=== PATIENT | female | born 1960 | race Caucasian/White ===

== ENCOUNTER 2021-03-21 07:41 | Outpatient (CLI) | payer OTHER, SELFPAY ==
--- NOTE | ~2021-03-21 | NM_ITS ---
EXAMINATION: NM hepatobiliary w pharm DATE: 03/21/2021 11:05 INDICATION: Right upper quadrant abdominal pain. Nausea. COMPARISON: None. TECHNIQUE: 5.9 mCi Tc-99m mebrofenin (Choletec) was administered intravenously. Scintigraphic images of the abdomen were obtained for one hour. Then, 1.5 mcg sincalide (Kinevac) IV was administered, an d imaging was continued for 30 minutes. FINDINGS: There is normal clearance of radiotracer from the blood pool. There is homogeneous tracer u ptake by the liver. Activity progresses to the bowel and gallbladder. Gallbladder ejection fraction (GBEF) was 39%. Note that most patients with gallbladder dysfunction have GBEF < 35%, which overlaps with the broad normal range of 10-90%. IMPRESSION: 1. Normal hepatobiliary scintigraphy. Reviewed, dictated and finalized at location A.
== END 2021-03-21 07:42 | disposition home or self-care (01) ==
LOC: CHSIMG 07:46
PROVIDERS: PCP Physician Assistant; Visit Provider Physician Assistant
DX: R10.11 Right upper quadrant pain (principal)
CPT/HCPCS: 78227; A9537; J2805

== ENCOUNTER 2021-03-30 10:16 | Outpatient (CLI) | payer OTHER, SELFPAY ==
--- NOTE | ~2021-03-30 | US_ITS ---
EXAMINATION: US soft tissue head and neck EXAM DATE: 03/30/2021 10:35 INDICATION: Lymphadenopathy of head and neck. TECHNIQUE: Multiple grayscale and Doppler images of the neck, internal jugular chains were obtained ( by a technologist who performed the scan) and subsequently reviewed. There is no prior study for radha rogers. FINDINGS: There is a right internal jugular chain lymph node measuring 1.3 x 1.8 x 0.7 cm with large fatty hilu m. Short axis less than 1 cm is considered within normal size limits. Fatty hilum also indicates it c ould be reactive. On the left side the largest lymph node measures 1.5 x 0.4 x 0.7 cm, also with fatty hilum. There are some smaller regional lymph nodes including one in the left parotid gland. IMPRESSION: Right internal jugular chain lymph node upper limits of normal in size. Probably reactive but clinical follow-up and if these increase in size, a repeat exam or CT neck with contrast recomme nded. Reviewed, dictated and finalized at location B. IMPRESSION: Right internal jugular chain lymph node upper limits of normal in s ize. Probably reactive but clinical follow-up and if these increase in size, a repeat exam or CT neck with contrast recommended.
== END 2021-03-30 10:17 | disposition home or self-care (01) ==
LOC: CHSIMG 10:17
PROVIDERS: PCP Physician Assistant; Visit Provider Physician Assistant
DX: R59.1 Generalized enlarged lymph nodes (principal)
CPT/HCPCS: 76536

== ENCOUNTER 2021-04-13 08:11 | Outpatient (CLI) | payer OTHER, SELFPAY ==
--- NOTE | ~2021-04-13 | CT_ITS ---
EXAMINATION: CT soft tissue neck w con EXAM DATE: 04/13/2021 09:03 INDICATION: Lymphadenopathy, dysphagia. History of breast cancer. Palpable abnormality right mid ante rior neck marked with BB. Left internal lump felt with swallowing. TECHNIQUE: Spiral CT of the neck was performed following intravenous injection of 75 mL Omnipaque 350 . Axial, coronal and sagittal images were reviewed. The dose-length product (DLP) for this examinat ion was 459.84 mGy-cm. The exposure was tailored according to patient size (auto mA exposure control ), and iterative reconstruction (ASIR) was used as additional dose reduction technique. There is no prior study for comparison. FINDINGS: There is a metallic BB along right anterior aspect of the neck with normal-appearing sterno cleidomastoid muscle deep to this. Probable right thyroid lobectomy, is not identified. Along the ri ght cheek there is subcutaneous fluid density nodule probably sebaceous cyst measuring 6 mm. The sub mandibular and parotid glands are symmetric. There is no cervical lymphadenopathy. There are no ma sses identified. The superior mediastinum is unremarkable. The airway is unremarkable. Parapha ryngeal and pre-glottic fat planes are preserved. The opacified vasculature is patent. Right verteb ral artery is dominant. Right internal jugular vein is dominant drainage. The orbits are unremarkabl e. Visualized sinuses and mastoid air cells are well aerated. Mild apical scarring and emphysema. Mild to moderate cervical spondylosis. IMPRESSION: 1. Unremarkable CT neck examination. Reviewed, dictated and finalized at location A.
[2021-04-13 08:34] LABS: Estimated Glomerular Filt Rate 51
== END 2021-04-13 08:12 | disposition home or self-care (01) ==
LOC: CHSIMG 08:12
PROVIDERS: PCP Physician Assistant; Visit Provider Physician Assistant
DX: R59.1 Generalized enlarged lymph nodes (principal)
CPT/HCPCS: 70491; Q9967

== ENCOUNTER 2021-05-10 10:57 | Outpatient (CLI) | payer OTHER, SELFPAY ==
--- NOTE | ~2021-05-10 | MM_ITS ---
EXAMINATION: MM screening arnulfo BI w juani HISTORY: Screening mammogram, history of right breast cancer TECHNIQUE: Craniocaudal and mediolateral oblique 3-D tomosynthesis images were obtained and synthetic 2-D images were generated. CAD analysis was submitted and interpreted. COMPARISON: No prior mammogram is available for comparison at this institution. BREAST PARENCHYMAL COMPOSITION: There are scattered areas of fibroglandular density. FINDINGS: RIGHT BREAST: Lumpectomy changes are present in the right breast. Calcifications likely relate to jackie or lumpectomy. LEFT BREAST: There appears to be an intramammary lymph node of the lower inner breast. IMPRESSION: 1. Right breast calcifications likely related to prior lumpectomy and possible intramammary lymph nod e of the left breast. 2. Comparison with prior mammograms is necessary. BI-RADS Category 0: Incomplete: Needs comparison with prior mammograms. Reviewed, dictated and finalized at location A. IMPRESSION: 1. Right breast calcifications likely related to prior lumpectomy and possible intramammary lymph node of the left breast. 2. Comparison with prior mammograms is necessary. BI-RADS Category 0: Incomplete: Needs comparison with prior mammograms.
== END 2021-05-10 10:58 | disposition home or self-care (01) ==
LOC: CHSIMG 11:00
PROVIDERS: PCP Physician Assistant; Visit Provider Physician Assistant
DX: Z12.31 Encounter for screening mammogram for malignant neoplasm of breast (principal)
CPT/HCPCS: 77063; 77067

== ENCOUNTER 2021-06-08 08:50 | Outpatient (CLI) | payer OTHER, SELFPAY ==
--- NOTE | ~2021-06-08 | MM_ITS ---
EXAMINATION: MM diagnostic arnulfo RT w juani HISTORY: Follow-up developing right breast calcifications TECHNIQUE: Additional 3-D tomosynthesis images of the right breast were performed and synthetic 2-D i mages were generated. CAD analysis was submitted and interpreted. COMPARISON: Comparison to multiple prior studies sequentially, with oldest reviewed study dated 05/10. BREAST PARENCHYMAL COMPOSITION: Breast composed of scattered areas of fibroglandular density. FINDINGS: There are changes of prior lumpectomy for breast cancer in the subareolar location of the r ight breast. There are developing amorphous calcifications at the lumpectomy site, likely benign fat necrosis. No discrete mass identified. IMPRESSION: 1. Probable benign developing right breast calcifications at the prior lumpectomy site. 2. Recommend 6 month follow-up diagnostic right mammogram. BI-RADS category 3, probably benign findings. Reviewed, dictated and finalized at location A. IMPRESSION: 1. Probable benign developing right breast calcifications at the prior lumpecto my site. 2. Recommend 6 month follow-up diagnostic right mammogram. BI-RADS category 3, probably benign findings.
== END 2021-06-08 08:51 | disposition home or self-care (01) ==
LOC: CHSIMG 08:54
PROVIDERS: PCP Physician Assistant; Visit Provider Physician Assistant
DX: R92.8 Other abnormal and inconclusive findings on diagnostic imaging of breast (principal)
CPT/HCPCS: 77061; 77065; G0279

== ENCOUNTER 2021-08-10 08:58 | Outpatient (CLI) | payer OTHER, SELFPAY ==
--- NOTE | ~2021-08-10 | US_ITS ---
EXAMINATION: US right upper quadrant EXAM DATE: 08/10/2021 09:22 INDICATION: Abdominal pain TECHNIQUE: Multiple grayscale and Doppler images of the abdomen right upper quadrant were obtained (b y a technologist who performed the scan) and subsequently reviewed. There is no prior study for mc coley. FINDINGS: The pancreatic head and body are normal in appearance. The pancreatic tail is not visualized. There is echogenic liver parenchyma, hepatic steatosis. There are no focal liver lesions identified. Th ere is no evidence of intrahepatic biliary duct dilation. Portal venous flow was seen in the hepatop edal, normal direction and has normal Doppler waveform. No right-sided hydronephrosis. Common bile duct measures 5 mm, which is normal. The gallbladder wall is normal in thickness, with ex pected amount of distention. No sonographic evidence of pericholecystic fluid. There is no cholelit hiases. Technologist noted tenderness over the otherwise sonographically unremarkable gallbladder. IMPRESSION: 1. Right upper quadrant tenderness. Sonographically normal gallbladder. 2. Hepatic steatosis. Reviewed, dictated and finalized at location B. BING MECHANIC
== END 2021-08-10 08:59 | disposition home or self-care (01) ==
LOC: CHSIMG 09:00
PROVIDERS: PCP Physician Assistant; Visit Provider Nurse Practitioner Psychiatric/Mental Health
DX: R10.11 Right upper quadrant pain (principal)
CPT/HCPCS: 76705

== ENCOUNTER 2021-08-27 09:18 | Outpatient (CLI) | payer OTHER, SELFPAY ==
--- NOTE | ~2021-08-27 | NM_ITS ---
. EXAMINATION: NM hepatobiliary w pharm DATE: 08/27/2021 12:05 INDICATION: Right upper quadrant abdominal pain. COMPARISON: Ultrasound 08/10/2021 TECHNIQUE: 5.9 mCi Tc-99m mebrofenin (Choletec) was administered intravenously. Scintigraphic images of the abdomen were obtained for one hour. Then, 1.5 mcg sincalide (Kinevac) IV was administered, an d imaging was continued for 30 minutes. FINDINGS: There is normal clearance of radiotracer from the blood pool. There is homogeneous tracer u ptake by the liver. Activity progresses to the bowel and gallbladder. Gallbladder ejection fraction (GBEF) was 51%. Note that most patients with gallbladder dysfunction have GBEF < 35%, which overlaps with the broad normal range of 10-90%. IMPRESSION: 1. Normal hepatobiliary scintigraphy. Reviewed, dictated and finalized at location A. 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
[2021-08-27 10:19] LABS: INR 2.5; Prothrombin Time 25.2 Seconds (9.50-12.10)
== END 2021-08-27 09:19 | disposition home or self-care (01) ==
LOC: CHSIMG 09:21
PROVIDERS: PCP Family Medicine; Visit Provider Physician Assistant
DX: R10.11 Right upper quadrant pain (principal); Z79.01 Long term (current) use of anticoagulants
CPT/HCPCS: 36415; 78227; 85610; A9537; J2805

== ENCOUNTER 2021-10-10 15:40 | Emergency (ER) | payer OTHER, SELFPAY ==
--- NOTE | ~2021-10-10 | XR_ITS ---
EXAMINATION: XR chest 2V DATE: 10/10/2021 17:38 INDICATION: Cough. Dyspnea. TECHNIQUE: Frontal and lateral views of the chest were obtained on 3 radiographs. COMPARISON: None. FINDINGS: The lungs are hyperexpanded, consistent with chronic obstructive pulmonary disease. There i s mild scarring at the lung apices. There is mild atelectasis versus scarring in the lower lung zones . No pleural effusion or pneumothorax. The heart size is normal. Surgical clips overlie left chest. T here is mild chronic anterior wedging of a midthoracic vertebral body. IMPRESSION: 1. Hyperexpanded lungs, consistent with chronic obstructive pulmonary disease. 2. Mild scarring at the lung apices and mild atelectasis versus scarring in the lower lung zones. Reviewed, dictated and finalized at location A. IT REPORTING CLERK
[2021-10-10 16:08] VITALS: BP 126/67; PULSE 109; RESP 22; TEMP 36.6; O2SAT 92
--- NOTE | 2021-10-10 16:59 | ED.URI ---
HPI - URI/Sore Throat General Chief Complaint: Upper Respiratory Infection Stated Complaint: trouble breathing,cough,nausea Source: patient and RN notes reviewed Mode of arrival: ambulatory Limitations: no limitations History of Present Illness HPI Narrative: patient states she has been ill for approximately 3 weeks. The 1st week her doctor diagnosed her with a stomach virus. Then the 2nd week he said that she had an upper respiratory infection and she was started on a Z-Jean Paul. This week he said come to the emergency room. She has been having cough with some green phlegm and feeling short of breath with coughing. MD elicited complaint: fever, cough and nasal congestion Onset (ago): week(s) (3) Consistency: intermittent Severity: moderate Description of mucous: green Able to tolerate fluids by mouth: Yes Exacerbating factors: other (coughing) Relieving factors: nothing Related Data Home Medications Medication Instructions Recorded Confirmed anastrozole 1 mg PO DAILY 10/10/21 10/10/21 atorvastatin 80 mg PO DAILY 10/10/21 10/10/21 buspirone 10 mg PO DAILY 10/10/21 10/10/21 citalopram 40 mg PO DAILY 10/10/21 10/10/21 levothyroxine 25 mcg PO DAILY 10/10/21 10/10/21 omeprazole 40 mg PO DAILY 10/10/21 10/10/21 warfarin 1 mg PO DAILY 10/10/21 10/10/21 warfarin 4 mg PO DAILY 10/10/21 10/10/21 Allergies Allergy/AdvReac Type Severity Reaction Status Date / Time naproxen Allergy Mild SKIN Verified 10/10/21 16:16 ITCHES AND GRACIA adhesive tape Allergy Unknown Verified 10/10/21 16:16 Review of Systems Review of Systems: All systems reviewed & are unremarkable except as noted in HPI and below Constitutional: Constitutional: Reports chills, Reports fever(s) (102) and Reports weakness (generalized) ENT: Denies nasal congestion and Denies sore throat Cardiovascular: Cardiovascular: Denies chest pain Respiratory: Respiratory: Reports as per HPI Gastrointestinal: Gastrointestinal: Denies diarrhea, Reports nausea and Denies vomiting Neurologic: Reports headache(s) [facility] Past Medical History Medical History (Updated 10/10/21 @ 18:28 by Christopher Harrison MD) Breast cancer Peripheral artery disease Thyroid adenoma Surgical History Surgical History (Updated 01/19/22 @ 17:22 by Christopher Harrison MD) H/O thyroidectomy History of femoropopliteal bypass bilateral Social History Social History (Updated 10/10/21 @ 17:22 by Christopher Harrison MD) Smoking packs per day: 1 Smoking cigarettes per day: 20.0 Smoking status: Current every day smoker Tobacco type: cigarettes Exam Const: General: no acute distress, alert and ill appearing acutely Nutritional Appearance: well nourished Orientation/consciousness: patient oriented x3 HENMT: Head: normal to inspection Ears: external ears normal and TM's normal bilaterally Face and sinus: normal facial exam Mouth: Yes Normal oral and palatal mucosa present, Yes lip normal and Yes moist mucous membranes Throat: posterior oropharynx normal and uvula midline Eyes: Conjunctivae: conjunctivae normal Pupils: Equal, round and reactive pupils present EOM: EOMs intact bilaterally Neck: Neck: normal visual inspection Resp: Effort & Inspection: normal respiratory effort Auscultation: rhonchi throughout ( posteriorly) Cardio: Rate: regular rate Rhythm: regular rhythm GI: GI Palp: Yes Soft to palpation and No Tenderness to palpation present (GI) Auscultation: normal bowel sounds Back/Spine/Pelvis: Cervical Spine: cervical ROM normal Thoracic/Lumbar Spine: thoraco-lumbar ROM normal Course Vital Signs Vital signs: Vital Signs Temperature 36.6 C 10/10/21 16:08 Pulse Rate 109 H 10/10/21 16:08 Respiratory Rate 22 H 10/10/21 16:08 Blood Pressure 126/67 10/10/21 16:08 Pulse Oximetry 92 10/10/21 16:08 Temperature 36.6 C 10/10/21 16:08 Pulse Rate 91 10/10/21 18:47 Respiratory Rate 18 10/10/21 18:47 Blood Pressure 121/91 H 10/10/21
[2021-10-10 17:24] LABS: Basophils Absolute Auto 0.03 K/mm3 (0.00-0.10); Basophils Percent Auto 0.4 % (0.0-1.0); Eosinophils Absolute Auto 0.05 K/mm3 (0.02-0.50); Eosinophils Percent Auto 0.7 % (1.0-6.0); Hematocrit 41.6 % (35.0-49.0); Hemoglobin 13.4 g/dL (12.0-15.0); Immature Granulocyte Absolute 0.03 K/mm3 (0.00-0.00); Immature Granulocyte Percent A 0.4 % (0.0-0.0); Lymphocytes Absolute Auto 1.28 K/mm3 (1.10-4.50); Lymphocytes Percent Auto 17.6 % (18.0-42.0); Mean Corpuscular HGB Conc 32.2 g/dL (32.0-36.0); Mean Platelet Volume 9.8 fl (9.2-11.8); Monocytes Absolute Auto 0.52 K/mm3 (0.10-0.90); Monocytes Percent Auto 7.1 % (2.0-11.0); Neutrophils Absolute Auto 5.4 K/mm3 (1.7-7.2); Neutrophils Percent Auto 73.8 % (50.0-70.0); Platelet Count Result 189 K/mm3 (150-420); Red Blood Count 4.78 M/mm3 (4.20-5.40); Red Cell Distribution Width 14.1 % (11.6-14.4); White Blood Count 7.3 K/mm3 (4.8-10.8)
[2021-10-10 17:47] LABS: Alanine Aminotransferase 39 U/L (14-59); Albumin Level 2.9 g/dL (3.4-5.0); Alkaline Phosphatase 140 U/L (46-116); Anion Gap 10 mmol/L (8-16); Aspartate Amino Transferase 33 U/L (15-37); Bilirubin,Total 0.4 mg/dL (0.00-1.00); Blood Urea Nitrogen 11 mg/dL (7-18); Calcium 8.7 mg/dL (8.5-10.1); Carbon Dioxide 27 mmol/L (21-32); Chloride 95 mmol/L (98-108); Estimated CRCL calculation 45 ml/min; Estimated Glomerular Filt Rate 46; Glucose 87 mg/dL (70-99); Magnesium 2.1 mg/dL (1.8-2.4); NT Pro B Type Natriuretic Pept 328 pg/mL (0-125); Osmolality Calculated 272 mOsm/kg (285-295); Sodium 132 mmol/L (136-145); Total Protein 7.8 g/dL (6.4-8.2)
[2021-10-10 18:00] LABS: CRP 6.8 mg/dL (0.0-0.9)
[2021-10-10] MEDS: methylPREDNISolone SOD SUCC 125 MG VIAL IM (18:41)
[2021-10-10 18:47] VITALS: BP 121/91; PULSE 91; RESP 18; O2SAT 92
== END 2021-10-10 18:48 | disposition home or self-care (01) ==
PROVIDERS: Emergency Provider Emergency Medicine; PCP Family Medicine
DX: J44.1 Chronic obstructive pulmonary disease with (acute) exacerbation (principal)
CPT/HCPCS: 36415; 71046; 80053; 83735; 83880; 85025; 86140; 96372; 99283; J2930

== ENCOUNTER 2021-10-12 14:28 | Emergency (ER) | payer OTHER, SELFPAY ==
[2021-10-12 14:32] VITALS: BP 132/72; PULSE 86; RESP 18; TEMP 36.6; O2SAT 95
--- NOTE | 2021-10-12 14:49 | ED.ALLEREA ---
HPI - Allergic Reaction General Chief complaint: Allergic Reaction Stated complaint: possible allergic reaction Time Seen by Provider: 10/12/21 14:49 Source: patient Mode of arrival: ambulatory Limitations: no limitations History of Present Illness HPI narrative: 61-year-old woman comes in today complaining of burning, swelling, and redness of her face and neck that started in the last 24 hours. Patient states that she was here 2 days ago with some shortness of breath and cough and wheezing and she was prescribed steroids, DuoNebs, and doxycycline. She denies itching, throat swelling, tongue swelling,, nausea, vomiting, chest pain, diarrhea, and abdominal pain. She denies any recent sun exposure. MD complaint: facial swelling Onset (ago): day(s) (1) Exposure: medication Known history of allergy to: Naproxen Symptoms: rash and facial swelling Severity: moderate Treatment prior to arrival: none and steroids Previous Allergic Reaction History: angioedema Related Data Home Medications Medication Instructions Recorded Confirmed anastrozole 1 mg PO DAILY 10/10/21 10/12/21 atorvastatin 80 mg PO DAILY 10/10/21 10/12/21 buspirone 10 mg PO DAILY 10/10/21 10/12/21 citalopram 40 mg PO DAILY 10/10/21 10/12/21 levothyroxine 25 mcg PO DAILY 10/10/21 10/12/21 omeprazole 40 mg PO DAILY 10/10/21 10/12/21 warfarin 1 mg PO DAILY 10/10/21 10/12/21 warfarin 4 mg PO DAILY 10/10/21 10/12/21 Allergies Allergy/AdvReac Type Severity Reaction Status Date / Time naproxen Allergy Mild SKIN Verified 10/12/21 14:51 ITCHES AND GRACIA adhesive tape Allergy Unknown Verified 10/12/21 14:51 Review of Systems Review of Systems: All systems reviewed & are unremarkable except as noted in HPI and below Constitutional: Constitutional: Denies chills and Denies fever(s) Eyes: Eyes: Denies change in vision and Denies photophobia ENT: Reports nasal congestion and Denies sore throat Cardiovascular: Cardiovascular: Denies chest pain and Denies radiating jaw, neck or arm pain Respiratory: Respiratory: Reports chest congestion, Reports cough, Reports dyspnea and Reports wheezing Gastrointestinal: Gastrointestinal: Denies abdominal pain, Denies diarrhea, Denies nausea and Denies vomiting Musculoskeletal: Musculoskeletal: Denies arthralgias and Denies joint swelling Integumentary/Breasts: Skin/Breast: Denies pruritus and Reports erythema Neurologic: Denies vertigo, Denies dizziness and Denies syncope Allergic/Immunologic: Allergic/Immunologic: Denies lip swelling, Denies throat swelling and Denies tongue swelling [facility] Past Medical History Medical History Breast cancer Peripheral artery disease Thyroid adenoma Surgical History Surgical History H/O thyroidectomy History of femoropopliteal bypass bilateral Social History Social History Smoking packs per day: 1 Smoking cigarettes per day: 20.0 Smoking status: Current every day smoker Tobacco type: cigarettes Exam Const: General: healthy appearing, no acute distress and alert Orientation/consciousness: patient oriented x3 Limitations: no limitations HENMT: Ears: TM's normal bilaterally and EAC's normal Face and sinus: normal facial exam Mouth: Yes moist mucous membranes Throat: posterior oropharynx normal and uvula midline Other: mild edema and erythema of the cheeks, nose, and neck Eyes: Conjunctivae: conjunctivae normal Pupils: Equal, round and reactive pupils present EOM: EOMs intact bilaterally Resp: Effort & Inspection: normal respiratory effort, not labored and no retractions Auscultation: no rales, no rhonchi, wheezes expiratory wheezes and scattered wheezes and diminished lung sounds ( Mildly throughout) Cardio: Rate: regular rate Rhythm: regular rhythm Heart sounds: no murmurs Skin: Gene
== END 2021-10-12 15:23 | disposition home or self-care (01) ==
PROVIDERS: Emergency Provider Emergency Medicine; PCP Physician Assistant
DX: T50.905A Adverse effect of unspecified drugs, medicaments and biological substances, initial encounter (principal)
CPT/HCPCS: 99283

== ENCOUNTER 2022-07-11 09:50 | Outpatient (CLI) | payer OTHER, SELFPAY ==
--- NOTE | ~2022-07-11 | US_ITS ---
EXAMINATION: US carotid duplex BI DATE: 07/11/2022 10:58 INDICATION: Carotid stenosis TECHNIQUE: Grayscale, color Doppler, and pulsed Doppler images of the cervical carotid arteries were obtained. The degree of vessel stenosis is placed in one of the following categories: normal, <50%, 5 0-69%, >=70% but less than near-occlusion, near-occlusion, or total occlusion. Note that percent sten osis relative to normal distal artery lumen diameter is indirectly measured from velocity measurement s as described by Feroz, et al. Radiology 2003; [id number]. Notes: Normal: Peak systolic velocity <125 centimeters/sec and no plaque <50%. Peak systolic velocity <125 ( EDV <40; ICA/CCA PSV ratio <2.0; used these factors only a tandem lesions or low cardiac output or co ntralateral disease) 50-69 %: PSV 125-230 (EDV 40-100; ratio 2-4) >= 70% but less than near occlusion: PSV greater than 230 (EDV > 100; ratio> 4.0) Near Occlusion: PSV that is variable; markedly narrowed lumen Occlusion: Absent flow on color/spectral Doppler and no lumen on cooley scale. COMPARISON: None. FINDINGS: RIGHT: The right common carotid artery (CCA) peak systolic velocity (PSV) is 93 cm/s. The right internal car otid artery (ICA) PSV is 75 cm/s. The right ICA end-diastolic velocity (EDV) is 22 cm/s. The right IC A/CCA PSV ratio is 0.8. The external carotid artery (ECA) PSV is 108 cm/s. There is antegrade flow in the right vertebral artery. LEFT: The left CCA PSV is 92 cm/s. The left ICA PSV is 104 cm/s. The left ICA EDV is 23 cm/s. The left ICA/ CCA PSV ratio is 1.1. The ECA PSV is 215 cm/s. There is antegrade flow in the left vertebral artery. IMPRESSION: 1. Less than 50% stenosis in the right internal carotid artery by sonographic criteria. 2. Less than 50% stenosis in the left internal carotid artery by sonographic criteria. Reviewed, dictated and finalized at location A. IMPRESSION: 1. Less than 50% stenosis in the right internal carotid artery by sonographic iván chapman. 2. Less than 50% stenosis in the left internal carotid artery by sonographic manda zamora.
== END 2022-07-11 09:51 | disposition home or self-care (01) ==
LOC: CHSIMG 09:51
PROVIDERS: PCP Physician Assistant; Visit Provider Physician Assistant
DX: I65.29 Occlusion and stenosis of unspecified carotid artery (principal)
CPT/HCPCS: 93880

== ENCOUNTER 2022-07-21 15:42 | Emergency (ER) | payer OTHER, SELFPAY ==
--- NOTE | ~2022-07-21 | XR_ITS ---
EXAM: XR knee LT min 4V DATE: 07/21/2022 16:00 HISTORY: LAT LEFT KNEE PAIN, STEPPED IN HOLE 5 DAYS AGO. . COMPARISON: None available. FINDINGS: Normal mineralization. No fracture or dislocation. No lytic or blastic lesion. Mild left k nee osteoarthritis. Quadriceps enthesopathy. No erosion or periosteal change. Atherosclerotic calcifi cations. IMPRESSION: No acute osseous finding in the left knee. Reviewed, dictated and finalized at location K.
[2022-07-21 15:51] VITALS: BP 129/80; PULSE 93; RESP 18; TEMP 36.1; O2SAT 98
--- NOTE | 2022-07-21 16:06 | ED.LOWEXIN ---
HPI - Extremity Injury (Lower) General Chief Complaint: Extremity Injury, Lower Stated Complaint: outer L leg injury;stepped in hole Time Seen by Provider: 07/21/22 15:48 Source: patient Mode of arrival: ambulatory Limitations: no limitations History of Present Illness HPI Narrative: PATIENT IS A 62-YEAR-OLD WHITE FEMALE STATES SHE STEPPED IN A HOLE ABOUT THE SIZE OF HER FOOT AND HER SISTER'S YD AND TWISTED HER LEFT KNEE WITH EXTERNAL IN FOR EVERSION AND NOW COMPLAINS OF LATERAL KNEE PAIN SINCE SHE HAS BEEN USING TYLENOL FOR THE PAIN WITHOUT MUCH HELP. HE IS ON COUMADIN BLOOD THINNERS FOR PERIPHERAL ARTERY DISEASE AND HAS ALLERGIES TO NAPROSYN. DENIES ANY PREVIOUS INJURY OR OTHER INJURIES. SHE SAID SHE FELT A POP WHEN IT HAPPENED. DENIES ANY NUMBNESS OR TINGLING. DENIES ANY BACK OR HIP PAIN OR ANKLE PAIN DENIES LOSS OF CONSCIOUSNESS. Related Data Home Medications Medication Instructions Recorded Confirmed anastrozole 1 mg tablet 1 mg PO DAILY 10/10/21 07/21/22 atorvastatin 80 mg tablet 80 mg PO DAILY 10/10/21 07/21/22 buspirone 10 mg tablet 10 mg PO DAILY 10/10/21 07/21/22 citalopram 40 mg tablet 40 mg PO DAILY 10/10/21 07/21/22 levothyroxine 25 mcg tablet 25 mcg PO DAILY 10/10/21 07/21/22 omeprazole 40 mg capsule,delayed 40 mg PO DAILY 10/10/21 07/21/22 release warfarin 1 mg tablet 1 mg PO DAILY 10/10/21 07/21/22 warfarin 4 mg tablet 4 mg PO DAILY 10/10/21 07/21/22 Allergies Allergy/AdvReac Type Severity Reaction Status Date / Time naproxen Allergy Mild SKIN Verified 07/21/22 15:56 ITCHES AND GRACIA adhesive tape Allergy Unknown Verified 07/21/22 15:56 Review of Systems Review of Systems: All systems reviewed & are unremarkable except as noted in HPI and below Constitutional: Constitutional: Reports no additional constitutional complaints Eyes: Eyes: Reports no additional eye complaints ENT: Reports system reviewed and no additional complaints, except as documented Cardiovascular: Cardiovascular: Reports no additional cardiovascular complaints Respiratory: Respiratory: Reports no additional respiratory complaints Gastrointestinal: Gastrointestinal: Reports no additional gastrointestinal complaints Genitourinary: Genitourinary: Reports no additional female genitourinary complaints Musculoskeletal: Musculoskeletal: Reports no additional musculoskeletal complaints, Reports as per HPI and Reports arthralgias Integumentary/Breasts: Comments: HAD A MASTECTOMY AND CANNOT USE CRUTCHES. Neurologic: Reports system reviewed and no additional complaints, except as documented, Reports as per HPI, Denies confusion, Denies dizziness, Denies syncope, Denies headache(s), Denies focal weakness, Denies numbness and Denies weakness PMFSH Past Medical History Medical History Breast cancer Peripheral artery disease Thyroid adenoma Surgical History Surgical History H/O thyroidectomy History of femoropopliteal bypass bilateral Social History Social History Smoking packs per day: 1 Smoking cigarettes per day: 20.0 Smoking status: Current every day smoker Tobacco type: cigarettes Exam Const: General: healthy appearing Nutritional Appearance: well nourished Orientation/consciousness: patient oriented x3 Limitations: no limitations Other: LEFT KNEE NO SWELLING MILD DIFFUSE TENDERNESS ESPECIALLY LATERALLY. FULL RANGE OF MOTION NEGATIVE JOSEPHINE'S TEST, NEGATIVE ANTERIOR AND POSTERIOR DRAWER TESTING. STABLE TO VARUS AND VALGUS STRESSES. NO CONTUSIONS. LEFT HIP AND ANKLE FULL RANGE OF MOTION NONTENDER. NEUROVASCULAR INTACT TO THE LEFT LOWER EXTREMITY. GAIT NORMAL. Course Course Emergency Course: PATIENT WAS GIVEN A KNEE IMMOBILIZER. EVALUATION AND PLAN WAS DISCUSSED ALL QUESTIONS WERE ASKED AND ANSWERED PATIENT WOULD
--- NOTE | 2022-07-21 16:19 | PC.NURSE ---
patient refused norco, states she is driving.
[2022-07-21 16:48] VITALS: BP 122/73; PULSE 105; RESP 16; TEMP 36.6; O2SAT 95
--- NOTE | 2022-07-21 16:56 | PC.NURSE ---
patient provided written script for walker and printed prescription for norco upon dishcarge.
== END 2022-07-21 16:55 | disposition home or self-care (01) ==
PROVIDERS: Emergency Provider Emergency Medicine; PCP Physician Assistant
DX: S83.92XA Sprain of unspecified site of left knee, initial encounter (principal); Z85.3 Personal history of malignant neoplasm of breast; I73.9 Peripheral vascular disease, unspecified; F17.200 Nicotine dependence, unspecified, uncomplicated
CPT/HCPCS: 73564; 99283; L1830

== ENCOUNTER 2022-08-21 14:40 | Outpatient (CLI) | payer OTHER, SELFPAY ==
--- NOTE | ~2022-08-21 | US_ITS ---
EXAMINATION: US arterial ankle brachial ind DATE: 08/21/2022 15:26 INDICATION: Peripheral arterial disease. Symptoms and signs involving the circulatory system. TECHNIQUE: Segmental pressures and plethysmographic and Doppler waveforms of the brachial and lower e xtremity arteries were obtained. COMPARISON: None. FINDINGS: Right brachial artery pressure was not measured. Left brachial artery pressures was 161 mm Hg. The right ankle-brachial index (KARINA) is 0.63 (normal >= 0.9-1.0). The right great toe-brachial index (TBI) is 0.50 (normal >= 0.65). Arterial Doppler waveforms are biphasic in common femoral artery and monophasic from superficial femoral artery to the ankle. The left KARINA is 0.63. The left TBI was not measured. Arterial Doppler waveforms are monophasic from c ommon femoral artery to the ankle. IMPRESSION: 1. Moderately decreased ABIs, consistent with arterial occlusive disease. Reviewed, dictated and finalized at location A. FLAT INSPECTOR
== END 2022-08-21 14:41 | disposition home or self-care (01) ==
LOC: CHSIMG 14:41
PROVIDERS: PCP Physician Assistant; Visit Provider Physician Assistant
DX: R09.89 Other specified symptoms and signs involving the circulatory and respiratory systems (principal)
CPT/HCPCS: 93922

== ENCOUNTER 2022-09-18 07:48 | Outpatient (CLI) | payer OTHER, SELFPAY ==
--- NOTE | ~2022-09-18 | CT_ITS ---
EXAMINATION: CTA LE LT DATE: 09/18/2022 09:22 INDICATION: Left lower leg pain TECHNIQUE: Computed tomographic angiography (CTA) of the abdominal, pelvis, and both lower extremitie s was performed with 150 mL Omnipaque 350 intravenous contrast. Automated exposure control and iterat corinna reconstruction technique were employed. The dose-length product was 1081.55 mGy-cm. COMPARISON: None. FINDINGS: Incompletely visualized aortobiiliac endoluminal stent graft with thrombosis of both the endoluminal stent in the surrounding pneumonitis the distal aorta and common iliac arteries. Contrast opacificati on of a widely patent left-sided likely axillary left femoral bypass graft and visualized left side o f a likely femoral femoral bypass graft. There is retrograde contrast opacification of the bilateral external and internal iliac arteries. There is a small amount of nonhemodynamically significant atherosclerotic plaque in the left common f emoral artery at its anastomosis with the bypass graft as well as medially distal to the graft in the proximal most left superficial femoral artery. Additional atherosclerotic plaque at the [id number] ee left popliteal artery with up to 40-50% stenosis from small amount of additional atherosclerotic p laque with 30% stenosis at the mid left popliteal artery and distal left popliteal artery at its bifu rcation. No appreciable atherosclerotic disease along the more distal arteries in the left calf with three-vessel runoff to the ankle. Bone alignment is normal. No fracture. Mild to moderate osteoarthritis at the left hip. Joint space a t the left knee appear normal but this could be underestimated on nonweightbearing imaging. There is subarticular cystic change along the medial and posterior margins of the medial tibial plateau sugges ting regions of overlying high-grade chondromalacia. No left hip, knee or ankle joint effusions. Blad vaughn, atrophic and anteverted uterus, left ovary, visualized caudal tip of the left kidney and visuali zed portions of the bowels are all normal. No free fluid in the pelvis. No pathologically enlarged le ft pelvic or inguinal lymphadenopathy. No abnormal masses or fluid collections identified. IMPRESSION: 1. Thrombosed aortobiiliac endoluminal stent graft with supply to the pelvic vessels and left lower limb supplied via a patent left-sided likely axillary to femoral and femoral to femoral bypass grafts . 2. Mild scattered atherosclerotic disease along the left femoral and popliteal arteries with maximal 40-50% stenosis at the proximal left popliteal artery and with three-vessel runoff to the ankle. 3. Mild to moderate osteoarthritis at the left hip and at least mild osteoarthritis in the medial com partment of the left knee with subarticular cystic change at the medial tibial plateau suggesting ove rlying high-grade chondromalacia. Reviewed, dictated and finalized at location A. CAL ADMINISTRATIVE ASSISTANT IMPRESSION: 1. Thrombosed aortobiiliac endoluminal stent graft with supply to the pelvic v essels and left lower limb supplied via a patent left-sided likely axillary to femoral and femoral to femoral bypass grafts. 2. Mild scattered atherosclerotic disease along the left femoral and popliteal arteries with maximal 40-50% stenosis at the proximal left popliteal artery and with three-vessel runoff to the ankle. 3. Mild to moderate osteoarthritis at the left hip and at least mild osteoarthr itis in the medial compartment of the left knee with subarticular cystic change at the medial tibial plateau suggesting overlying high-grade chondromalacia.
[2022-09-18 08:31] LABS: Estimated Glomerular Filt Rate 47
== END 2022-09-18 07:49 | disposition home or self-care (01) ==
LOC: CHSIMG 07:50
PROVIDERS: PCP Physician Assistant; Visit Provider Physician Assistant
DX: M79.662 Pain in left lower leg (principal); Z95.828 Presence of other vascular implants and grafts; I73.9 Peripheral vascular disease, unspecified; M16.12 Unilateral primary osteoarthritis, left hip; M17.12 Unilateral primary osteoarthritis, left knee; M94.262 Chondromalacia, left knee
CPT/HCPCS: 73706; Q9967

== ENCOUNTER 2022-10-09 14:21 | Outpatient (CLI) | payer OTHER, SELFPAY ==
--- NOTE | ~2022-10-09 | XR_ITS ---
EXAMINATION: XR lumbar spine 2-3V DATE: 10/09/2022 14:39 INDICATION: Low back pain. Left-sided sciatica. TECHNIQUE: 3 views of lumbar spine were obtained. COMPARISON: None. FINDINGS: There is 3 degrees dextrocurvature of lumbar spine. There is 3 mm retrolisthesis of L5 on S 1. Vertebral body heights are normal. There is mildly decreased disc height at L4-L5 and severely dec reased disc height at L5-S1. There is multilevel mild to moderate facet joint osteoarthritis. There a re stents in the common iliac arteries. IMPRESSION: 1. Severe lower lumbar spondylosis. Reviewed, dictated and finalized at location A. UET CAPTAIN
== END 2022-10-09 14:22 | disposition home or self-care (01) ==
LOC: CHSIMG 14:23
PROVIDERS: PCP Physician Assistant; Visit Provider Registered Nurse
DX: M54.42 Lumbago with sciatica, left side (principal); M43.06 Spondylolysis, lumbar region
CPT/HCPCS: 72100

== ENCOUNTER 2022-11-01 09:58 | Outpatient (CLI) | payer OTHER, SELFPAY ==
--- NOTE | ~2022-11-01 | CT_ITS ---
EXAMINATION: CT lung screening DATE: 11/01/2022 10:14 INDICATION: Personal history of nicotine dependence, current smoker with 53 pack year history TECHNIQUE: Computed tomography (CT) of the chest was performed without intravenous contrast. The dose -length product (DLP) was 87.35 mGy-cm. Automated exposure control and iterative reconstruction techn ique were employed. COMPARISON: None FINDINGS: There is mild emphysema. There is a 1.5 cm nonsolid nodule of the right upper lobe. There a re multiple smaller nonsolid nodules scattered throughout the left lung. There is a 3 mm subsegmental endobronchial nodule in the right lower lobe on image 95. Nodules of the right lower lobe measure up to 2 mm. No pleural effusion or pneumothorax. There is atelectasis or scarring along the minor fissu re. No pathologically enlarged thoracic lymph nodes are identified. The heart size is normal. Calcifi ed coronary artery atherosclerosis is noted. There is a partially imaged axillary bypass graft on the left. There is moderate thoracic spondylosis. IMPRESSION: 1. Lung-RADS category 0: Incomplete. Follow-up low-dose CT in one to three months is recommended. Reviewed, dictated and finalized at location B. H HAND IMPRESSION: 1. Lung-RADS category 0: Incomplete. Follow-up low-dose CT in one to three james hs is recommended.
== END 2022-11-01 09:59 | disposition home or self-care (01) ==
LOC: CHSIMG 09:59
PROVIDERS: PCP Physician Assistant; Visit Provider Registered Nurse
DX: Z12.2 Encounter for screening for malignant neoplasm of respiratory organs (principal); Z87.891 Personal history of nicotine dependence; R91.8 Other nonspecific abnormal finding of lung field
CPT/HCPCS: 71271

== ENCOUNTER 2022-11-28 14:15 | Outpatient (CLI) | payer OTHER, SELFPAY ==
--- NOTE | ~2022-11-28 | CT_ITS ---
EXAMINATION: CT lumbar spine wo con DATE: 11/28/2022 14:50 INDICATION: Low back pain. TECHNIQUE: Computed tomography (CT) of the lumbar spine was performed without intravenous contrast. A utomated exposure control and iterative reconstruction technique were employed. The dose-length produ ct was 651.44 mGy-cm. COMPARISON: CTA 09/18/2022 FINDINGS: There are stents in the abdominal aorta and common iliac arteries. There is 5 degrees levoc urvature of lumbar spine. There is 4 mm retrolisthesis of L5 on S1. Vertebral body heights are normal . There is mildly decreased disc height at L4-L5 and severely decreased disc height at L5-S1. There i s mild atrophy of left kidney. The following disc levels are specifically discussed: L1-L2: The disc does not extend beyond the endplate margin. There is mild bilateral facet joint osteo arthritis. There is no neural foraminal stenosis. There is no central canal stenosis. L2-L3: The disc is bulging. There is mild bilateral facet joint osteoarthritis. There is mild bilater al neural foraminal stenosis. There is mild central canal stenosis. L3-L4: The disc is bulging. There is moderate right and severe left facet joint osteoarthritis. There is mild bilateral neural foraminal stenosis. There is mild central canal stenosis. L4-L5: The disc is bulging with superimposed right central extrusion. There is severe bilateral facet joint osteoarthritis. There is mild bilateral neural foraminal stenosis. There is mild central canal stenosis. There is moderate stenosis of right lateral recess. L5-S1: The disc is bulging with superimposed left subarticular zone extrusion with mass effect on lef t S1 nerve root in left lateral recess. There is severe bilateral facet joint osteoarthritis. There i s moderate right and mild left neural foraminal stenosis. There is mild central canal stenosis. There is moderate stenosis of left lateral recess. IMPRESSION: 1. Severe lower lumbar spondylosis. Reviewed, dictated and finalized at location A. OL PRINCIPAL
--- NOTE | ~2022-11-28 | CT_ITS ---
CT Scan of the Chest without Contrast: Clinical Indication: Pulmonary nodule, wheezing, cough Technique: Contiguous sections were acquired throughout the chest without intravenous contrast. Dose reduction technique was used on this scan by utilizing automated exposure control and iterative recon struction technique. The dose-length product (DLP) was 185.56 mGy-cm. COMPARISON: 11/01/2022 Findings: There is no evidence of any significant mediastinal, hilar or axillary lymphadenopathy. Coronary ross ry calcium cages are present. There are atherosclerotic calcifications of the aorta. There is no evidence of pleural or pericardial effusion. Chronic scarring or atelectasis at the anteromedial right upper lobe is stable from prior exam. Minim al right apical emphysematous change is stable from prior exam. Questionable minimal groundglass opac ity in the upper lobes, similar to prior exam. Images through the upper abdomen reveal no abnormalities. Impression: Suspected minimal amorphous patchy groundglass opacities in the upper lobes. Correlate for atypical i nfection, bronchiolitis, hypersensitivity pneumonitis. Stable chronic scarring or atelectasis right upper lobe. No suspicious pulmonary nodule for malignancy. Reviewed, dictated and finalized at [facility]. TESTER Impression: Suspected minimal amorphous patchy groundglass opacities in the upper lobes. Co rrelate for atypical infection, bronchiolitis, hypersensitivity pneumonitis. Stable chronic scarring or atelectasis right upper lobe. No suspicious pulmonary nodule for malignancy.
== END 2022-11-28 14:16 | disposition home or self-care (01) ==
LOC: CHSIMG 14:17
PROVIDERS: PCP Physician Assistant; Visit Provider Family Medicine
DX: R91.1 Solitary pulmonary nodule (principal); M54.50 Low back pain, unspecified; R91.8 Other nonspecific abnormal finding of lung field; M43.06 Spondylolysis, lumbar region
CPT/HCPCS: 71250; 72131

== ENCOUNTER 2022-12-07 15:05 | Emergency (ER) | payer OTHER, SELFPAY ==
[2022-12-07 15:05] VITALS: BP 144/74; PULSE 95; RESP 18; TEMP 36.4; O2SAT 99
--- NOTE | 2022-12-07 15:36 | ED.LOWEXIN ---
HPI - Extremity Injury (Lower) General Chief Complaint: Extremity Injury, Lower Stated Complaint: Sciatic pain Time Seen by Provider: 12/07/22 15:10 Source: patient and family Mode of arrival: ambulatory Limitations: physical limitation History of Present Illness HPI Narrative: This this is a 62-year-old female with a chronic back pain that has been aggravated and now causing a sciatic discomfort radiating down to her left leg and left foot has a history of chronic low back pain had a CT scan performed in this ER approximately 10 days ago which showed a bulging disc L3 to L5 with severe spondylosis. Currently the pain she described as a 9/10 radiating down her left leg with no saddle paresthesias neuro are no neurological deficits no dysuria no hematuria no flank pain no nausea vomiting or abdominal pain. complaint: other Onset (ago): week(s) Place: home Severity: severe Severity scale (1-10): 9 Related Data Home Medications Medication Instructions Recorded Confirmed anastrozole 1 mg tablet 1 mg PO DAILY 10/10/21 07/21/22 atorvastatin 80 mg tablet 80 mg PO DAILY 10/10/21 07/21/22 buspirone 10 mg tablet 10 mg PO DAILY 10/10/21 07/21/22 citalopram 40 mg tablet 40 mg PO DAILY 10/10/21 07/21/22 levothyroxine 25 mcg tablet 25 mcg PO DAILY 10/10/21 07/21/22 omeprazole 40 mg capsule,delayed 40 mg PO DAILY 10/10/21 07/21/22 release warfarin 1 mg tablet 1 mg PO DAILY 10/10/21 07/21/22 warfarin 4 mg tablet 4 mg PO DAILY 10/10/21 07/21/22 Allergies Allergy/AdvReac Type Severity Reaction Status Date / Time naproxen Allergy Mild SKIN Verified 07/21/22 15:56 ITCHES AND GRACIA adhesive tape Allergy Unknown Verified 07/21/22 15:56 Review of Systems Review of Systems: All systems reviewed & are unremarkable except as noted in HPI and below PMFSH Past Medical History Medical History Breast cancer Peripheral artery disease Thyroid adenoma Surgical History Surgical History H/O thyroidectomy History of femoropopliteal bypass bilateral Social History Social History Smoking packs per day: 1 Smoking cigarettes per day: 20.0 Smoking status: Current every day smoker Tobacco type: cigarettes Exam Const: General: no acute distress Nutritional Appearance: well nourished Limitations: no limitations HENMT: Head: normal to inspection Eyes: Conjunctivae: conjunctivae normal EOM: EOMs intact bilaterally Direct Ophthalmoscopy: no photophobia Neck: Neck: normal visual inspection Chest: Chest palpation & inspection: normal inspection of the chest Resp: Effort & Inspection: normal respiratory effort Auscultation: clear to auscultation bilaterally Cardio: Rate: regular rate Rhythm: regular rhythm GI: GI Palp: Yes Soft to palpation Auscultation: normal bowel sounds : General: Yes bladder normal to palpation Back/Spine/Pelvis: Back: no CVA tenderness Skin: General skin exam: normal color Rashes: no rashes Wounds: no wounds Neuro: General: patient oriented x3, moves all extremities, no meningeal signs and no focal motor deficits Cranial nerves: Yes Nystagmus not present Speech: normal speech Extrem: General: normal to inspection Other: Positive straight leg raising test on left Psych: Mental Status: mental status grossly normal Affect: normal affect Attitude: cooperative Course Course Emergency Course: patient received IM morphine and IM so relaxer which has improved her pain level. Vital Signs Vital signs: Vital Signs Temperature 36.4 C L 12/07/22 15:05 Pulse Rate 95 12/07/22 15:05 Respiratory Rate 18 12/07/22 15:05 Blood Pressure 144/74 H 12/07/22 15:05 Pulse Oximetry 99 12/07/22 15:05 Oxygen Delivery Room Air 12/07/22 15:05 Temperature 36.4 C L 12/07/22 15:05 Pulse Rate 95
[2022-12-07] MEDS: ORPHENADRINE CITRATE 30 MG/ML 2 ML VIAL 60 MG IM (15:46)
[2022-12-07] MEDS: MORPHINE SULFATE (*CRX) 4 MG/ML INJ IM (15:47)
[2022-12-07 16:10] VITALS: BP 125/62; PULSE 84; RESP 18; O2SAT 98
== END 2022-12-07 16:21 | disposition home or self-care (01) ==
PROVIDERS: Emergency Provider Emergency Medicine; PCP Physician Assistant
DX: M54.32 Sciatica, left side (principal); I73.9 Peripheral vascular disease, unspecified; F17.210 Nicotine dependence, cigarettes, uncomplicated; Z85.3 Personal history of malignant neoplasm of breast
CPT/HCPCS: 96372; 99284; J2270; J2360

== ENCOUNTER 2023-02-25 12:25 | Outpatient (CLI) | payer OTHER, SELFPAY ==
--- NOTE | ~2023-02-25 | US_ITS ---
EXAMINATION: US arterial ankle brachial ind DATE: 02/25/2023 13:02 INDICATION: Peripheral arterial disease. TECHNIQUE: Segmental pressures and plethysmographic and Doppler waveforms of the brachial and lower e xtremity arteries were obtained. COMPARISON: Arterial Doppler and segmental pressures 08/21/2022. FINDINGS: Right and left brachial artery pressures of 161 mm Hg and 145 mm Hg, respectively, are concordant (no rmal difference <= 30 mmHg). The right ankle-brachial index (KARINA) is 0.65 (normal >= 0.9-1.0). The right great toe-brachial index (TBI) is 0.40 (normal >= 0.65). Arterial Doppler waveforms are monophasic at the ankle. The left KARINA is 0.65. The left TBI is 0.40. Arterial Doppler waveforms are monophasic at the ankle. IMPRESSION: 1. Moderately decreased ABIs, consistent with arterial occlusive disease, stable from 08/21/22. Reviewed, dictated and finalized at location A. IMPRESSION: 1. Moderately decreased ABIs, consistent with arterial occlusive disease, stabl aníbal from 08/21/22.
== END 2023-02-25 12:26 | disposition home or self-care (01) ==
LOC: CHSIMG 12:27
PROVIDERS: PCP Family Medicine; Visit Provider Family Medicine
DX: M79.89 Other specified soft tissue disorders (principal)
CPT/HCPCS: 93922

== ENCOUNTER 2023-09-10 07:52 | Outpatient (CLI) | payer OTHER, SELFPAY ==
--- NOTE | ~2023-09-10 | US_ITS ---
Abdominal Sonogram: Real-time sonographic imaging of the abdomen was performed. Clinical History: Abdominal pain Findings: The liver appears mildly echogenic, with no evidence of mass lesion or bile duct dilatatio n. Main portal vein demonstrates normal direction of flow. The spleen is normal in size without evide nce of focal lesion. The gallbladder is well distended, and appears normal with no evidence of galls tone or wall thickening. The common bile duct measures 3 mm. The visualized pancreas, aorta, and IVC are unremarkable. The right kidney measures 10.7 cm in length and the left kidney measures 9.0 cm. There is no hydronephrosis or renal calculus. Impression: Probable diffuse fatty infiltration of liver. Reviewed, dictated and finalized at location M. KING STILL OPERATOR Impression: Probable diffuse fatty infiltration of liver.
== END 2023-09-10 07:53 | disposition home or self-care (01) ==
LOC: CHSIMG 07:55
PROVIDERS: PCP Family Medicine; Visit Provider Registered Nurse
DX: R10.11 Right upper quadrant pain (principal)
CPT/HCPCS: 76700

== ENCOUNTER 2023-12-05 13:49 | Outpatient (CLI) | payer OTHER, SELFPAY ==
--- NOTE | ~2023-12-05 | US_ITS ---
EXAMINATION: US carotid duplex BI DATE: 12/05/2023 14:21 INDICATION: Follow-up carotid stenosis TECHNIQUE: Grayscale, color Doppler, and pulsed Doppler images of the cervical carotid arteries were obtained. The degree of vessel stenosis is placed in one of the following categories: normal, <50%, 5 0-69%, >=70% but less than near-occlusion, near-occlusion, or total occlusion. Note that percent sten osis relative to normal distal artery lumen diameter is indirectly measured from velocity measurement s as described by Feroz, et al. Radiology 2003; 229:340-346. Notes: Normal: Peak systolic velocity <125 centimeters/sec and no plaque <50%. Peak systolic velocity <125 ( EDV <40; ICA/CCA PSV ratio <2.0; used these factors only a tandem lesions or low cardiac output or co ntralateral disease) 50-69 %: PSV 125-230 (EDV 40-100; ratio 2-4) >= 70% but less than near occlusion: PSV greater than 230 (EDV > 100; ratio> 4.0) Near Occlusion: PSV that is variable; markedly narrowed lumen Occlusion: Absent flow on color/spectral Doppler and no lumen on cooley scale. COMPARISON: None. FINDINGS: RIGHT: The right common carotid artery (CCA) peak systolic velocity (PSV) is 93 cm/s. The right internal car otid artery (ICA) PSV is 104 cm/s. The right ICA end-diastolic velocity (EDV) is 27 cm/s. The right I CA/CCA PSV ratio is 1.1. The external carotid artery (ECA) PSV is 91 cm/s. There is antegrade flow in the right vertebral artery. LEFT: The left CCA PSV is 89 cm/s. The left ICA PSV is 157 cm/s. The left ICA EDV is 25 cm/s. The left ICA/ CCA PSV ratio is 1.8. The ECA PSV is 143 cm/s. There is to and fro flow in the left vertebral artery . IMPRESSION: 1. Less than 50% stenosis in the right internal carotid artery by sonographic criteria. 2. 50-69% stenosis in the left internal carotid artery by sonographic criteria. 3: To-and-fro flow in the left vertebral artery. Reviewed, dictated and finalized at location A. IMPRESSION: 1. Less than 50% stenosis in the right internal carotid artery by sonographic c riteria. 2. 50-69% stenosis in the left internal carotid artery by sonographic criteria. 3: To-and-fro flow in the left vertebral artery.
== END 2023-12-05 13:50 | disposition home or self-care (01) ==
LOC: CHSIMG 13:51
PROVIDERS: PCP Family Medicine; Visit Provider Registered Nurse
DX: I65.23 Occlusion and stenosis of bilateral carotid arteries (principal)
CPT/HCPCS: 93880

== ENCOUNTER 2024-11-10 15:46 | Outpatient (CLI) | payer MEDICARE, SELFPAY ==
--- OUTSIDE RECORDS SUMMARY | 2024-11-10 15:53 | XMS_ITS ---
Author Organization Unknown Address [address] [place] [address] [phone] Phone Care Team Providers Care Correctional Guard Name Role Phone VITA JUÁREZI Attending Unavailable DIDIER CABEZAS Archana Primary Unavailable Immunization Immunization Date Status Additional Notes Code Code System Tdap 03/01/2014 Completed 115 CVX Influenza, split virus, trivalent, PF 11/16/2013 Completed 140 CVX Influenza, split virus, trivalent, preservative 07/01/2020 Completed 141 CVX Influenza, split virus, quadrivalent, PF 10/26/2016 Completed 150 CVX Results US ARTERIAL UE BILATERAL - C ompleted: 06/18/2024 15:49 LOINC: EXAM DESCRIPTION: US ARTERIAL UE BILATERAL REASON FOR STUDY: UPPER EXT WEAKNESS TECHNIQUE: Grayscale and color images acquired of the bilateral upper extremity arteries. Additional selected spectral images recorded. Images saved to PACS. COMPARISON: None FINDINGS: RIGHT UPPER EXTREMITY: SUBCLAVIAN: Normal Doppler waveforms. No velocity elevation to suggest stenosis. AXILLARY: Normal Doppler waveforms. No velocity elevation to suggest stenosis. Normal color Doppler evaluation. BRACHIAL: Normal Doppler waveforms. No velocity elevation to suggest stenosis. Normal color Doppler evaluation. RADIAL: Normal Doppler waveforms. No velocity elevation to suggest stenosis. Normal color Doppler evaluation. ULNAR: Normal Doppler waveforms. No velocity elevation to suggest stenosis. Normal color Doppler evaluation. OTHER: No other significant finding. LEFT UPPER EXTREMITY: Tardus parvus waveforms within the left subclavian artery. Decreased peak systolic velocities of the downstream arteries relative to the right. IMPRESSION: Tardus parvus waveform of the left subclavian artery, with decreased peak systolic velocities of the downstream arteries relative to the right upper extremity. Findings may be due to a proximal subclavian arterial stenosis. THIS IS AN ELECTRONICALLY VERIFIED FINAL REPORT 06/23/2024 7:33 AM - Electronically signed by Dmitry Benitez M.D. KR: KR Report ID: [id number] Reading Location: [id number] Social History Type Status Start Date End Date Code Code Syst em Smoking History Current every day smoker [id number] SNOMED CT Sex Female Hospital Discharge Instructions Should you have any questions prior to discharge, please contact a member of your healthcare team. If you have left the hospital and have any questions, please contact your primary care physician. Reason For Referral No Data Found Plan of Treatment US Arterial UE Bilateral ([id number]) 2023 Encounters Encounter Diagnosis Start Date Code Code Sys tem Peripheral vascular disease, unspecified 06/18/2024 SNOMED-CT Personal Care Team Section Performer Name Performer Role Active Date Inactive JOCELYNN Howard PCP - Primary care physician 2022-08-22
--- OUTSIDE RECORDS SUMMARY | 2024-11-10 15:53 | XMS_ITS ---
Author Organization Unknown Address [address] [place] [address] [phone] Phone Care Team Providers Care Inspector Toys Name Role Phone GORMAN KASHIF Attending Unavailable DIDIER Magaña Primary Unavailable Immunization Immunization Date Status Additional Notes Code Code System Tdap 03/01/2014 Completed 115 CVX Influenza, split virus, trivalent, PF 11/16/2013 Completed 140 CVX Influenza, split virus, trivalent, preservative 07/01/2020 Completed 141 CVX Influenza, split virus, quadrivalent, PF 10/26/2016 Completed 150 CVX Social History Type Status Start Date End Date Code Code Syst em Smoking History Current every day smoker [id number] SNOMED CT Sex Female Hospital Discharge Instructions Should you have any questions prior to discharge, please contact a member of your healthcare team. If you have left the hospital and have any questions, please contact your primary care physician. Reason For Referral No Data Found Plan of Treatment US Arterial UE Bilateral ([id number]) 2023 Encounters Encounter Diagnosis Start Date Code Code Sys tem Hyperlipidemia 02/12/2024 [id number] SNOMED-CT Personal Care Team Section Performer Name Performer Role Active Date Inactive JOCELYNN Howard PCP - Primary care physician 2022-08-22
[2024-11-10 17:00] LABS: Strep Group A RT-PCR NOT DETECTED (Negative)
[2024-11-10 17:05] LABS: SARS-CoV-2 RNA PCR Negative (Negative)
[2024-11-10 17:08] LABS: Influenza A QL RT-PCR Negative (Negative); Influenza B QL RT-PCR Negative (Negative); RSV RNA, RT-PCR Negative (Negative)
== END 2024-11-10 15:47 | disposition home or self-care (01) ==
PROVIDERS: PCP Family Medicine; Visit Provider Family Medicine
DX: J44.1 Chronic obstructive pulmonary disease with (acute) exacerbation (principal)
CPT/HCPCS: 87637; 87651